=== PATIENT | male | born 1945 | race Caucasian/White ===

== ENCOUNTER → 2024-08-26 10:49 | Outpatient (CLI) | payer OTHER, SELFPAY | PROVIDERS: PCP Internal Medicine; Visit Provider Urology | DX: N40.1 Benign prostatic hyperplasia with lower urinary tract symptoms (principal); N13.8 Other obstructive and reflux uropathy | CPT/HCPCS: 87086 ==

== ENCOUNTER → 2024-09-04 11:58 | Outpatient (CLI) | payer OTHER, SELFPAY | PROVIDERS: PCP Internal Medicine; Visit Provider Urology | DX: R35.0 Frequency of micturition (principal); N40.1 Benign prostatic hyperplasia with lower urinary tract symptoms; N13.8 Other obstructive and reflux uropathy; R39.198 Other difficulties with micturition; R33.9 Retention of urine, unspecified; Z97.8 Presence of other specified devices; Z68.23 Body mass index [BMI] 23.0-23.9, adult | CPT/HCPCS: 81002; 87077; 87086; 87186; 99214 ==

== ENCOUNTER → 2024-09-17 12:00 | Outpatient (CLI) | payer OTHER, SELFPAY | PROVIDERS: PCP Internal Medicine; Visit Provider Urology | DX: Z97.8 Presence of other specified devices (principal); N40.1 Benign prostatic hyperplasia with lower urinary tract symptoms; N13.8 Other obstructive and reflux uropathy | CPT/HCPCS: 51701; 87086 ==

== ENCOUNTER → 2024-10-13 13:20 | Outpatient (CLI) | payer OTHER, SELFPAY | PROVIDERS: PCP Internal Medicine; Visit Provider Urology | DX: N40.1 Benign prostatic hyperplasia with lower urinary tract symptoms (principal); N13.8 Other obstructive and reflux uropathy; R39.198 Other difficulties with micturition; R33.9 Retention of urine, unspecified; Z87.440 Personal history of urinary (tract) infections; Z97.8 Presence of other specified devices | CPT/HCPCS: 87077; 87086; 87186; 99214 ==

== ENCOUNTER 2024-10-20 06:46 | Day surgery (SDC) | payer OTHER, SELFPAY ==
[2024-09-04 09:08] VITALS: BMI 23.1
[2024-10-16 15:01] VITALS: BMI 23.2
--- NOTE | 2024-10-20 | PATH_ITS ---
[facility] Accession Number: [id number] No. of containers..01 Tissue . 01 Material submitted: . prostate - PROSTATE CHIPS . 01 Diagnosis: PROSTATE, TURP: Benign prostatic parenchyma with features consistent with benign prostatic hyperplasia. Negative for malignancy. [facility] 10/23/2024 1030 Local . 01 Electronically signed: . Germán Bain MD, PhD, Pathologist NPI- [id number] . 01 Gross description: . Received in formalin with two identifiers and prostate chips, are multiple polanco soft tissue fragments admixed with a moderate amount of hemorrhagic material weighing 6 grams and aggregating to 6.2 x 4.6 x 1.4 cm. Submitted entirely in A1-A5. ([id number]) /MRV 10/22/2024 1824 Local . 01 Pathologist provided ICD-10: N40.1 . 01 CPT . 111561 Specimen Comment: A courtesy copy of this report has been sent to [phone] Performed at: [address] [id number] MD Vic Lopez MD Phone: [phone]
[2024-10-20] MEDS: LACTATED RINGERS 1,000 ML 21 ML IV (07:06)
[2024-10-20 07:27] VITALS: BP 159/87; PULSE 81; RESP 20; TEMP 36.2; O2SAT 99; BMI 23.2
--- NOTE | 2024-10-20 07:34 | SUR.PREOP ---
Patient had vagal response after attempting IV start; BP 88/56; patient slightly diaphoretic; no nausea; placed patient supine and IV fluids started. After a few minutes; patient states that symptoms resolved; BP back up to 126/73.
--- NOTE | 2024-10-20 07:35 | PM.PREOP ---
Pre-operative Note COVID-19 COVID-19 status: Not tested Interval Note History & Physical reviewed/Exam performed by Physician: Yes Changes to H&P: No
[2024-10-20] MEDS: CIPROFLOXACIN 400 MG/200 ML PIGGYBACK 200 MG IV (07:55)
--- NOTE | 2024-10-20 08:18 | SUR.OPER ---
Lithotomy on padded OR bed, head on pillow, arms secured on padded arm boards at <90 degrees abduction. Legs secured in padded yellow fins stirrups.
[2024-10-20 09:23] VITALS: BP 156/79; PULSE 97; RESP 18; TEMP 36.2; O2SAT 97
--- NOTE | 2024-10-20 09:24 | P.OP_ITS ---
Operative Date/Time/Diagnoses Date of procedure: 10/20/24 Time of procedure: 09:24 Pre-op diagnosis: BPH with LUTS/urinary retention Post-op diagnosis: same Procedure & Clinicians Procedure: 1. Aquablation 2. Transurethral resection of prostate with fulguration 3. Transrectal ultrasound of prostate 4. Placement of Cheng catheter Same procedure as scheduled: Yes Indications: This 79-year-old male presented with complaints of BPH with LUTS and urinary retention. At cystoscopy he was noted to have trilobar obstruction with bulging into the bladder and median lobe. He had multiple attempts at passing a voiding trial which he failed. He was unable to do a uroflow study because of his urinary retention. His prostate was measured at the 43-44 g range. He had no evidence of prostate cancer and presents at this time for Aquablation on antibiotics to treat his retention/BPH with LUTS. Surgeon: Rocco Kraft Click Yes if Unassisted: Yes Anesthesia Type: General Operative Notes Findings: Findings: Urethral meatus is normal save changes of a Cheng catheter. The urethra is normal along its length with changes consistent with an indwelling Cheng. Sphincter as well coapted the prostate shows trilobar obstruction. Ureteral orifices in normal position with clear efflux. Severe trabeculation and cellules were noted within the bladder. A transrectal ultrasound the prostate the seminal vesicles ampulla vas in normal position configuration and echotexture. The prostate exhibited a few cysts no hypoechoic lesions of the outlined was preserved. It previously been measured in the 43 to 44 g range. At the end of the procedure there was a wide-open channel through the prostate by ultrasound. At the fulguration there was noted to be anterior tissue which was hanging down this was resected leaving the prostatic fossa widely patent. When the scope was removed with the bladder full there was a vigorous stream. The patient had a [place] [address] hematuria catheter left in place with 45 cc in the balloon. Closure Type: not applicable Specimen(s): other (Prostate chips) Prosthetic devices, grafts, tissues, transplants, or devices: [place] [address] hemat[address] catheter with 45 cc of sterile water in the balloon. Estimated Blood Loss (mL): 15 Blood products transfused: none Procedure in detail: Procedure in detail: After informed consent was obtained, the patient was id entified brought to the operating room where he was placed in his supine position on the table. Once there anesthesia was induced and maintained. Ensuring an adequate level of anesthesia the patient was transitioned to the lithotomy position. Once there after ensuring an adequate level of anesthesia, administration of antibiotics and time-out the patient was prepped in a sterile fashion. Once the patient was prepped the ultrasound probe was inserted after instillation of 60 cc if ultrasound gel. The ultrasound probe was mounted to the truss stepper which was mounted to the truss articulating arm which he had been secured to the bed. The ultrasound probe was then aligned and confirmed to be centered in the prostate and aligned using both transverse and sagittal views. The level of the bladder neck, verumontanum and central and transition zones were identified and noted. With the ultrasound probe aligned and in correct position the patient was draped in a sterile fashion. Once draped the [place] aqua beam handpiece was inserted through the urethra prostate and into the bladder under direct vision. Cystoscopy was performed as it was inserted the level of the verumontanum external sphincter bladder neck ureteral orifices were all noted under direct vision and on the ultrasound. The level of the external sphincter and verumontanum were then marked. With the aqua beam h andpiece inserted it was secured to the handpiece articulating arm. Confirmation was made that the aqua beam handpiece in Trump probe were parallel and colinear. At this point confirmation that the aqua beam nozzle was centered and anterior to the bladder neck was confirmed. The cystoscope was then retracted under direct vision and the verumontanum and external sphincter were visualized. The tip of the scope was placed just proximal to the external sphincter. The alignment of the Aquablation handpiece and truss probe was once again confirmed. Some compression was then applied with a truss probe. Horizontal alignment of the hand piece water jet was then performed. The treatment plan and zones were then entered in in the following fashion. Real- time truss was used to visualize the contour of the prostate the depth and radial angles of resection were defined in the transverse view. In the sagittal view the aqua beam nozzle was identified in his position registered with the software. The length of treatment was then marked going to the tip of the scope. In the sagittal view the treatment contours were adjusted to conform to the intended and identified resection margins. The start of resection bladder neck mid prostate and verumontanum were then marked. The treatment contour was then confirmed. With this confirmed in his during the patient would not move the Aquablation treatment was then started and follow the resection contour which was monitored under real-time live ultrasound. With this completed a 2nd pass was made after adjustment of the contours. Total resection time was approximately 7-1/2 minutes. With the Aquablation completed the cystoscope was advanced to the tip of the hand piece and the scope looked out under direct vision. A resectoscope was then inserted and Ellik evacuator used to evacuate the bladder and any clot that was present. The resecting element was then inserted the ureteral orifices identified and then the bladder neck was resected and points of bleeding controlled from the 2:00 a.m. to 10 o'clock position. Anteriorly there appeared to be some redundant or a flap of tissue which was resected and points of bleeding control. Anteriorly there was a few spots of bleeding which were controlled with the electrocautery. At the apex there was small amount of residual tissue lateral to the verumontanum this was resected wi th this the channel was wide open. The Ellik evacuator was then used to evacuate the chips. The resectoscope was once again inserted in the last few points of bleeding were controlled. At this point the bladder was left full the scope was removed and the patient had a vigorous stream. Then with the aid of a cath guide the [place] [address] hemat[address] catheter was inserted under direct and ultrasound guidance. Once in the bladder the balloon was filled with 45 cc of sterile water and placed to gravity drainage. The three-way catheter was then connected to continuous bladder irrigation and the effluent remained clear. The patient was awakened having tolerated the procedure well and was transferred to the postanesthesia care unit for recovery. There were no complications the patient prostatic fossa was widely patent. Prior to his being awakened in the ultrasound probe was removed. Patient will be followed in the postanesthesia care unit for recovery and likely discharged home later this morning. Complications: none Post-operative Condition: stable Disposition: PACU Plan for aftercare: After recovery and if appropriate the patient will be discharged home to follow up in my office on for catheter removal.
[2024-10-20 09:28] VITALS: BP 150/87; PULSE 89; RESP 12; TEMP 36.2; O2SAT 100
[2024-10-20 09:38] VITALS: BP 148/88; PULSE 89; RESP 11; TEMP 36.2; O2SAT 100
[2024-10-20 09:43] VITALS: BP 143/86; PULSE 83; RESP 12; TEMP 36.2; O2SAT 100
[2024-10-20] MEDS: OXYBUTYNIN 5 MG TABLET PO (09:54)
[2024-10-20] MEDS: PHENAZOPYRIDINE 100 MG TABLET 200 MG PO (09:54)
[2024-10-20 11:38] VITALS: BP 148/86; PULSE 83; RESP 16; TEMP 36.1; O2SAT 99
== END 2024-10-20 12:00 | disposition home or self-care (01) ==
PROVIDERS: PCP Internal Medicine; Referring Provider Urology; Visit Provider Urology
PROC: 0VT08ZZ Resection of Prostate, Via Natural or Artificial Opening Endoscopic (ICD-10-PCS; CPT 52597; principal; 2024-10-20 07:45)
DX: N40.1 Benign prostatic hyperplasia with lower urinary tract symptoms (principal); N13.9 Obstructive and reflux uropathy, unspecified; R33.9 Retention of urine, unspecified
CPT/HCPCS: 0421T; C2596; J0330; J0744; J1100; J2405; J2704; J3010; J3490

== ENCOUNTER → 2024-10-22 15:49 | Outpatient (CLI) | payer OTHER, SELFPAY | PROVIDERS: PCP Internal Medicine; Visit Provider Urology | DX: Z87.440 Personal history of urinary (tract) infections (principal) | CPT/HCPCS: 87086 ==

== ENCOUNTER → 2024-10-27 16:00 | Outpatient (CLI) | payer OTHER, SELFPAY | PROVIDERS: PCP Internal Medicine; Visit Provider Urology | DX: N40.1 Benign prostatic hyperplasia with lower urinary tract symptoms (principal); N13.8 Other obstructive and reflux uropathy; R39.198 Other difficulties with micturition; Z87.440 Personal history of urinary (tract) infections | CPT/HCPCS: 87086 ==

== ENCOUNTER → 2024-10-28 09:42 | Outpatient (CLI) | payer OTHER, SELFPAY | PROVIDERS: PCP Internal Medicine; Visit Provider Urology | DX: R39.198 Other difficulties with micturition (principal); Z87.440 Personal history of urinary (tract) infections | CPT/HCPCS: 87086 ==

== ENCOUNTER → 2024-11-11 10:19 | Outpatient (CLI) | payer OTHER, SELFPAY | PROVIDERS: PCP Internal Medicine; Visit Provider Urology | DX: R39.198 Other difficulties with micturition (principal); Z87.440 Personal history of urinary (tract) infections; N40.1 Benign prostatic hyperplasia with lower urinary tract symptoms; N13.8 Other obstructive and reflux uropathy; R33.9 Retention of urine, unspecified | CPT/HCPCS: 51798; 81002; 87086 ==